=== PATIENT | female | born 1975 ===

== ENCOUNTER 2022-06-20 20:29 | Emergency (ER) | payer OTHER ==
--- OUTSIDE RECORDS SUMMARY | 2022-06-20 20:33 | XMS REPORT | Continuity of Care Document ---
:1975 Author Organization [facility] t Address [address] [place] [address] Care Team Providers Name Role Phone Pcp, Patient Does Not Have A Primary Care Physician [id number] LISANDRA CISNEROS Attending Clinician Unavailable Layla Cat MD Attending Clinician LAYLA CAT Attending Clinician Unavailable Doctor Unassigned, [place] Attending Clinician Unavailable Renato Xavier MD, [place] Attending Clinician [phone] VEENA SANDOVAL Attending Clinician Unavailable Lisandra Cisneros MD Attending Clinician Yrn Bower DO Attending Clinician Amadou EATON, Safia Collins Attending Clinician Unavailable Only, Clc Bls Test Attending Clinician Unavailable Abel Hannon MD Attending Clinician Arabella Yuan Attending Clinician ARABELLA SPENCE Attending Clinician Unavailable Draw, Clc-Bls Lab Attending Clinician Unavailable LISANDRA CISNEROS Admitting Clinician Unavailable Lisandra Cisneros MD Admitting Clinician Payers Payer Name Policy Type Policy Number Effective Date Expiration Date S [facility] MEDICARE PART A [id number] 2002 \T\ B 00:00:00 MEDICAID OF [place] [id number] 2011 00:00:00 Problems Condition Condition Condition Status Onset Resolution Last Treating Co mments Source Name Details Category Date Date Treatment Clinician Date Obesity Obesity Disease Active 2019-07 Univers (BMI (BMI 1-20 ity of 30-39.9) 30-39.9) 00:00: Medical Branch Aftercare Aftercare Disease Active 2019-07 Uni vers following following 1-20 ity of surgery of surgery of [place] the the Medical nervous nervous Branch system, system, NEC NEC 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 ICD10 Diagnosis Term [employer] Dystonia Dystonia Disease Active Unive rs of of 5 [place] of extremity extremity [place] Other Other Disease Active Univers extrapyram extrapyram 5 it y of idal idal 00:00: [place] disease disease 00 Medical and and Branch abnormal abnormal movement movement disorder disorder Other Other Disease Active Univers fragments fragments 5- ity of of torsion of torsion 00:00: [place] dy[place] dystonia 00 Medica l Branch Hemicrania Hemicrania Disease Active U nivers 4-30 ity of 00:00: Medical Branch Epilepsy Epilepsy Disease Active Overview: Un jayro 4-30 Formattin ity of 00:00: g of this note Medical might be Branch different from the original. 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 Seizures Seizures Disease Recurre Univ ers nce ity of [facility] Allergies, Adverse Reactions, Alerts Allergy Allergy Status Severity Reaction(s) Onset Inactive Treating Comm ents Source Name Type Date Date Clinician Stanley Propensi Active Rash Univer s ins ty to 9-16 ity of adverse 00:00: [place] reaction 00 Medical s to Branch drug PENICILL Drug Active Rash Univers INS Class 9-16 ity of 00:00: [place] 00 Medical Branch Penicill Propensi Active Rash Univer s ins ty to 9-16 ity of adverse 00:00: [place] reaction 00 Medical s to Branch drug ADHESIVE DRUG Active Med Rash 2007-07 Univers TAPE 0-20 ity of 00:00: [place] 00 Medical Branch Adhesive Propensi Active Rash 2007-07 Univer s Tape ty to 0-20 ity of adverse 00:00: [place] reaction 00 Medical s to Branch drug Social History Social Habit Start Date Stop Date Quantity Comments Source History of tobacco Cigarette Smoker University of use [facility] Exposure to 2022-04-29 2022-05-09 Not sure University SARS-CoV-2 (event) 00:00:00 11:01:00 [facility] Alcohol intake 2022-05-09 2022-05-09 .12 /d University of 00:00:00 00:00:00 [facility] Cigarettes smoked 2012-03-02 2012-03-02 Univers ity of current (pack per 00:00:00 00:00:00 [place] ) - Reported Branch Tobacco use and 2012-03-02 2012-03-02 Smokeless Universit y of exposure 00:00:00 00:00:00 tobacco non-user [facility] Sex Ass[birth year] Universit y of 00:00:00 00:00:00 [facility] Smoking Status Start Date Stop Date Source Smokes tobacco daily 2012-03-02 00:00:00 Univers ity of [facility] Medications Ordered Filled Start Stop Current Ordering Indication Dosage Frequency Signature Comments Components Source Medication Medication Date Date Medication? Clinician (SIG) Name Name levETIRAcet 2021-07 Yes [id number] TAKE 2 Univers am 500 mg 1-28 TABLETS BY ity of tablet 00:00: MOUTH IN [place] 00 THE Medical MORNING Branch AND 3 TABLETS BY MOUTH IN THE EVENING clostridium 2021-07- No [id number] 300U U nivers botulinum 0-20 10-20 ity of toxin 17:45: 16:56 [place] (BOTOX) 00 :00 Medical injection Branch 300 Units clostridium 2021-07- No [id number] 300U 300 Units, Univers botulinum 0-20 10-20 Intramuscu ity of toxin 17:45: 16:56 lar, ONCE, [place] (BOTOX) 00 :00 1 dose, On Medica l injection Dawn Branch 300 Units 05/09/22 at 1245, Routine
cleaning team member approving Restricted medication : LAYLA CAT clostridium 2021-07- No [id number] 300U U nivers botulinum 0-20 10-20 ity of toxin 17:45: 16:56 [place] (BOTOX) 00 :00 Medical injection Branch 300 Units clostridium 2021-07- No [id number] 300U 300 Units, Univers botulinum 0-20 10-20 Intramuscu ity of toxin 17:45: 16:56 lar, ONCE, [place] (BOTOX) 00 :00 1 dose, On Medica l injection Dawn Branch 300 Units 05/09/22 at 1245, Routine
cleaning team member approving Restricted medication : LAYLA CAT CLONAZEPAM 2021-07 Yes [id number] Take 1 U nivers 0.5 mg 0-10 tablet by ity of tablet 00:00: [facility] three Medical times Branch daily as needed for muscle spasm CLONAZEPAM 2021-07 Yes [id number] Take 1 U nivers 0.5 mg 0-10 tablet by ity of tablet 00:00: [facility] three Medical times Branch daily as needed for muscle spasm CLONAZEPAM 2021-07 Yes [id number] Take 1 U nivers 0.5 mg 0-10 tablet by ity of tablet 00:00: [facility] three Medical times Branch daily as needed for muscle spasm CLONAZEPAM 2021-07 Yes [id number] Take 1 U nivers 0.5 mg 0-10 tablet by ity of tablet 00:00: [facility] three Medical times Branch daily as needed for muscle spasm CLONAZEPAM 2021-07 Yes [id number] Take 1 U nivers 0.5 mg 0-10 tablet by ity of tablet 00:00: mouth [place] 00 three Medical times Branch daily as needed for muscle spasm CLONAZEPAM 2021-0 Yes [id number] Take 1 U nivers 0.5 mg 9-13 tablet by ity of tablet 00:00: mouth 00 three Medical times Branch daily as needed for muscle spasm CLONAZEPAM 2021-0 2- No [id number] Take 1 Univers 0.5 mg 9-13 10-10 tablet by ity of tablet 00:00: 00:00 mouth [place] 00 :00 three Medical times Branch daily as needed for muscle spasm OXcarbazepi 2021-0 Yes [id number] Take 1 Univers ne 300 mg 9-12 tablet by ity o f tablet 00:00: mouth 00 twice Medical daily Branch OXcarbazepi 2021-0 Yes [id number] Take 1 Univers ne 300 mg 9-12 tablet by ity o f tablet 00:00: mouth [place] 00 twice Medical daily Branch OXcarbazepi 2021-0 Yes [id number] Take 1 Univers ne 300 mg 9-12 tablet by ity o f tablet 00:00: mouth 00 twice Medical daily Branch OXcarbazepi 2021-0 Yes [id number] Take 1 Univers ne 300 mg 9-12 tablet by ity o f tablet 00:00: mouth 00 twice Medical daily Branch OXcarbazepi 2021-0 Yes [id number] Take 1 Univers ne 300 mg 9-12 tablet by ity o f tablet 00:00: mouth [place] 00 twice Medical daily Branch OXcarbazepi 2021-0 Yes [id number] Take 1 Univers ne 300 mg 9-12 tablet by ity o f tablet 00:00: mouth [place] 00 twice Medical daily Branch levETIRAcet 2021-0 Yes [id number] TAKE 2 Univers am 500 mg 8-04 TABLETS BY ity of tablet 00:00: MOUTH IN [place] 00 THE Medical MORNING Branch AND 3 TABLETS IN THE EVENING levETIRAcet 2021-0 Yes [id number] TAKE 2 Univers am 500 mg 8-04 TABLETS BY ity of tablet 00:00: MOUTH IN [place] THE Medical MORNING Branch AND 3 TABLETS IN THE EVENING levETIRAcet 2021-0 Yes [id number] TAKE 2 Univers am 500 mg 8-04 TABLETS BY ity of tablet 00:00: MOUTH IN [place] THE Medical MORNING Branch AND 3 TABLETS IN THE EVENING levETIRAcet 2021-0 Yes [id number] TAKE 2 Univers am 500 mg 8-04 TABLETS BY ity of tablet 00:00: MOUTH IN [place] 00 THE Medical MORNING Branch AND 3 TABLETS IN THE EVENING levETIRAcet 2021-0 Yes [id number] TAKE 2 Univers am 500 mg 8-04 TABLETS BY ity of tablet 00:00: MOUTH IN [place] 00 THE Medical MORNING Branch AND 3 TABLETS IN THE EVENING levETIRAcet 2021-0 Yes [id number] TAKE 2 Univers am 500 mg 8-04 TABLETS BY ity of tablet 00:00: MOUTH IN [place] 00 THE Medical MORNING Branch AND 3 TABLETS IN THE EVENING levETIRAcet 2021-0 2022- No [id number] TAKE 2 Univers am 500 mg 8-04 11-28 TABLETS BY ity of tablet 00:00: 00:00 MOUTH IN [place] 00 :00 THE Medical MORNING Branch AND 3 TABLETS IN THE EVENING clostridium 2021-0 2021- No [id number] 300U U nivers botulinum 01-31 ity of toxin 18:45: 17:42 [place] (BOTOX) 00 :00 Medical injection Branch 300 Units clostridium 2021-0 2021- No [id number] 300U 300 Units, Univers botulinum 01-31 Intramuscu ity of toxin 18:45: 17:42 lar, ONCE, [place] (BOTOX) 00 :00 1 dose, On Medica l injection Dawn Branch 300 Units 01/31/22 at 1345, Routine
cleaning team member approving Restricted medication : LAYLA CAT No known No No known Unive rs medications 01-31 medication it y of 12:47: s [place] 39 Medical Branch CLONAZEPAM 2021-0 Yes [id number] Take 1 U nivers 0.5 mg 7-12 tablet by ity of tablet 00:00: mouth [place] [address] three Medical times Branch daily as needed for muscle spasm CLONAZEPAM 2021-0 Yes [id number] Take 1 U nivers 0.5 mg 7-12 tablet by ity of tablet 00:00: mouth [place] [address] three Medical times Branch daily as needed for muscle spasm CLONAZEPAM 2021-0 Yes [id number] Take 1 U nivers 0.5 mg 7-12 tablet by ity of tablet 00:00: mouth [place] [address] three Medical times Branch daily as needed for muscle spasm CLONAZEPAM 2021-0 2022- No [id number] Take 1 Univers 0.5 mg 7-12 -13 tablet by ity of tablet 00:00: 00:00 mouth [place] 00 :00 three Medical times Branch daily as needed for muscle spasm OXCARBAZEPI 2021-0 Yes [id number] Take 1 Univers NE 300 mg 6-07 tablet by ity o f tablet 00:00: mouth [place] 00 twice Medical daily Branch OXCARBAZEPI 2-0 Yes [id number] Take 1 Univers NE 300 mg 6-07 tablet by ity o f tablet 00:00: mouth [place] 00 twice Medical daily Branch OXCARBAZEPI 2-0 Yes [id number] Take 1 Univers NE 300 mg 6-07 tablet by ity o f tablet 00:00: mouth [place] 00 twice Medical daily Branch OXCARBAZEPI 2-0 2- No [id number] Take 1 Univers NE 300 mg 6-07 -12 tablet by ity of tablet 00:00: 00:00 mouth [place] 00 :00 twice Medical daily Branch CYCLOBENZAP 2-0 Yes [id number] TAKE 1 Univers RINE 10 mg 6-02 TABLET BY ity of tablet 00:00: MOUTH [place] 00 THREE Medical TIMES Branch DAILY CYCLOBENZAP 2-0 Yes [id number] TAKE 1 Univers RINE 10 mg 6-02 TABLET BY ity of tablet 00:00: MOUTH [place] 00 THREE Medical TIMES Branch DAILY CYCLOBENZAP 2-0 Yes [id number] TAKE 1 Univers RINE 10 mg 6-02 TABLET BY ity of tablet 00:00: MOUTH [place] 00 THREE Medical TIMES Branch DAILY CYCLOBENZAP 2-0 Yes [id number] TAKE 1 Univers RINE 10 mg 6-02 TABLET BY ity of tablet 00:00: MOUTH [place] 00 THREE Medical TIMES Branch DAILY CYCLOBENZAP 2-0 Yes [id number] TAKE 1 Univers RINE 10 mg 6-02 TABLET BY ity of tablet 00:00: MOUTH [place] 00 THREE Medical TIMES Branch DAILY CYCLOBENZAP 2-0 Yes [id number] TAKE 1 Univers RINE 10 mg 6-02 TABLET BY ity of tablet 00:00: MOUTH [place] 00 THREE Medical TIMES Branch DAILY CYCLOBENZAP 2-0 Yes [id number] TAKE 1 Univers RINE 10 mg 6-02 TABLET BY ity of tablet 00:00: MOUTH [place] 00 THREE Medical TIMES Branch DAILY CYCLOBENZAP 2022-0 Yes [id number] TAKE 1 Univers RINE 10 mg 6-02 TABLET BY ity of tablet 00:00: MOUTH THREE Medical TIMES [place] DAILY CYCLOBENZAP 0 Yes [id number] TAKE 1 Univers RINE 10 mg 6-02 TABLET BY ity of tablet 00:00: MOUTH THREE [facility] TIMES [place] DAILY levETIRAcet 2020-07 Yes [id number] TAKE 2 Univers am 500 mg 2-30 TABLETS BY ity of tablet 00:00: MOUTH DAILY IN [facility] THE [place] MORNING , THEN TAKE 3 TABLETS IN THE EVENING diclofenac 2020-07 Yes [id number] 75mg Take 1 U nivers 75 mg EC 2-30 tablet by ity of tablet 00:00: mouth (two) Medical times [place] daily with meals. Use as needed for pain levETIRAcet 2020-07 Yes [id number] TAKE 2 Univers am 500 mg 2-30 TABLETS BY ity of tablet 00:00: MOUTH DAILY IN [facility] THE [place] MORNING , THEN TAKE 3 TABLETS IN THE EVENING diclofenac 2020-07 Yes [id number] 75mg Take 1 U nivers 75 mg EC 2-30 tablet by ity of tablet 00:00: mouth (two) Medical times [place] daily with meals. Use as needed for pain diclofenac 2020-07 Yes [id number] 75mg Take 1 U nivers 75 mg EC 2-30 tablet by ity of tablet 00:00: mouth (two) Medical times [place] daily with meals. Use as needed for pain diclofenac 2020-07 Yes [id number] 75mg Take 1 U nivers 75 mg EC 2-30 tablet by ity of tablet 00:00: mouth (two) Medical times [place] daily with meals. Use as needed for pain diclofenac 2020-07 Yes [id number] 75mg Take 1 U nivers 75 mg EC 2-30 tablet by ity of tablet 00:00: mouth (two) Medical times [place] daily with meals. Use as needed for pain diclofenac 2020-07 Yes [id number] 75mg Take 1 U nivers 75 mg EC 2-30 tablet by ity of tablet 00:00: mouth (two) Medical times [place] daily with meals. Use as needed for pain diclofenac 2020-07 Yes [id number] 75mg Take 1 U nivers 75 mg EC 2-30 tablet by ity of tablet 00:00: mouth 2 (two) Medical times Branch daily with meals. Use as needed for pain diclofenac 2020-07 Yes [id number] 75mg Take 1 U nivers 75 mg EC 2-30 tablet by ity of tablet 00:00: mouth 2 (two) Medical times [place] daily with meals. Use as needed for pain diclofenac 2020-07 Yes [id number] 75mg Take 1 U nivers 75 mg EC 2-30 tablet by ity of tablet 00:00: mouth 2 (two) Medical times Branch daily with meals. Use as needed for pain levETIRAcet 2020-07- No [id number] TAKE 2 Univers am 500 mg 2-30 - TABLETS BY ity of tablet 00:00: 00:00 [place] DAILY IN Medical THE [place] MORNING , THEN TAKE 3 TABLETS IN THE EVENING Immunizations Ordered Filled Immunization Date Status Comments [facility] e Immunization Name Name SARS-COV-2 COVID-19 2020-09-01 Completed Unive rsity of PFIZER VACCINE 00:00:00 [facility] [place] [facility] SARS-COV-2 COVID-19 2020-09-01 Completed Unive rsity of PFIZER VACCINE 00:00:00 [facility] [place] [facility] SARS-COV-2 COVID-19 2020-09-01 Completed Unive rsity of PFIZER VACCINE 00:00:00 [facility] [place] [facility] SARS-COV-2 COVID-19 2020-09-01 Completed Unive rsity of PFIZER VACCINE 00:00:00 [facility] [place] [facility] SARS-COV-2 COVID-19 2020-09-01 Completed Unive rsity of PFIZER VACCINE 00:00:00 [facility] [place] [facility] SARS-COV-2 COVID-19 2020-09-01 Completed Unive rsity of PFIZER VACCINE 00:00:00 [facility] [place] [facility] SARS-COV-2 COVID-19 2020-09-01 Completed Unive rsity of PFIZER VACCINE 00:00:00 [facility] [place] [facility] SARS-COV-2 COVID-19 2020-09-01 Completed Unive rsity of PFIZER VACCINE 00:00:00 [facility] [place] [facility] SARS-COV-2 COVID-19 2020-09-01 Completed Unive rsity of PFIZER VACCINE 00:00:00 [facility] [place] [facility] SARS-COV-2 COVID-19 2020-08-11 Completed Unive rsity of PFIZER VACCINE 00:00:00 [facility] [place] [facility] SARS-COV-2 COVID-19 2020-08-11 Completed Unive rsity of PFIZER VACCINE 00:00:00 [facility] [place] [facility] SARS-COV-2 COVID-19 2020-08-11 Completed Unive rsity of PFIZER VACCINE 00:00:00 [facility] [place] [facility] SARS-COV-2 COVID-19 2020-08-11 Completed Unive rsity of PFIZER VACCINE 00:00:00 [facility] [place] [facility] SARS-COV-2 COVID-19 2020-08-11 Completed Unive rsity of PFIZER VACCINE 00:00:00 [facility] [place] [facility] SARS-COV-2 COVID-19 2020-08-11 Completed Unive rsity of PFIZER VACCINE 00:00:00 [facility] [place] [facility] SARS-COV-2 COVID-19 2020-08-11 Completed Unive rsity of PFIZER VACCINE 00:00:00 [facility] [place] [facility] SARS-COV-2 COVID-19 2020-08-11 Completed Unive rsity of PFIZER VACCINE 00:00:00 [facility] [place] [facility] SARS-COV-2 COVID-19 2020-08-11 Completed Unive rsity of PFIZER VACCINE 00:00:00 [facility] [place] [facility] Vital Signs Vital Name Observation Time Observation Value Comments Source Systolic blood 2022-05-09 16:13:00 142 mm[Hg] Univer sity of pressure [facility] Diastolic blood 2022-05-09 16:13:00 88 mm[Hg] Unive rsity of pressure [facility] Heart rate 2022-05-09 16:13:00 96 /min [facility] Body temperature 2022-05-09 16:13:00 36.22 [facility] Body height 2022-05-09 16:13:00 152.4 cm [facility] Body weight 2022-05-09 16:13:00 73.71 kg [facility] BMI 2022-05-09 16:13:00 31.74 kg/m2 [facility] Oxygen saturation in 2022-05-09 16:13:00 99 /min [facility] Arterial blood by [facility] Pulse oximetry Branch Systolic blood 2022-01-31 16:20:00 131 mm[Hg] Univer sity of pressure [facility] Diastolic blood 2022-01-31 16:20:00 87 mm[Hg] Unive rsity of pressure [facility] Heart rate 2022-01-31 16:15:00 113 /min Univers ty [facility] Body temperature 2022-01-31 16:15:00 36.56 Oksana Univ ersity of [facility] Body height 2022-01-31 16:15:00 152.4 cm Universi ty [facility] Body weight 2022-01-31 16:15:00 [facility] 2022-01-31 16:15:00 32.34 kg/m2 [facility] Oxygen saturation in 2022-01-31 16:15:00 97 /min [facility] Arterial blood by [facility] Pulse oximetry [place] Procedures Procedure Date / Time Performed Performing Clinician Sourc e DISCLOSURE AND 2022-05-09 05:01:00 Doctor Unassigned, No Univer sity of [place] CONSENT, MEDICAL AND Name Medical [facility] SURGICAL PROCEDURES DISCLOSURE AND 2022-01-31 05:01:00 Doctor Unassigned, No Univer sity of [place] CONSENT, MEDICAL AND Name Medical [facility] SURGICAL PROCEDURES Encounters Start End Encounter Admission Attending Care Care Encounter Source Date/Time Date/Time Type Type Clinicians Facility Department ID 2021-05-19 Inpatient [facility] [id number] Univers 05:23:24 DECEMBER ity [facility] 2022-06-15 2022-06-15 [facility] [id number] Univers 00:00:00 00:00:00 [facility] [id number] it y of [id number] [phone] [address] OFFICE BUILDING 2022-05-09 2022-05-09 Office [facility] 1.2.840.114 [id number] Univers 11:00:00 11:30:00 Visit [facility] [id number] it y [id number] [phone] [address] OFFICE BUILDING 2022-05-09 2022-05-09 Outpatient R EMORY [facility] [id number] Univers 11:00:00 11:00:00 LAYLA ity [facility] 2022-05-09 2022-05-09 Orders Doctor SUDHA 1.2.840.114 [id number] Univers 00:00:00 00:00:00 Only Unassigned, DINORA [id number] ity of [place] [facility] [id number] Danny as [phone] [address] 2022-04-26 2022-04-[facility] [id number] Univers 00:00:00 00:00:00 Layla HEALTH [id number] it y [id number] [id number] [address] OFFICE BUILDING 2022-03-31 2022-03-31 [facility] 1.2.840.114 [id number] Univers 00:00:00 00:00:00 Layla HEALTH [id number] it [id number] [id number] [address] OFFICE BUILDING 2022-02-21 2022-02-21 [facility] 1.2.840.114 [id number] Univers 00:00:00 00:00:00 Layla HEALTH [id number] it y [id number] [id number] [address] OFFICE BUILDING 2022-01-31 2022-01-31 [facility] 1.2.840.114 [id number] Univers 11:00:00 11:57:35 Visit Layla HEALTH [id number] it y [id number] [id number] [address] OFFICE BUILDING 2022-01-31 2022-01-31 Outpatient R [facility] [id number] Univers 11:00:00 11:57:35 LAYLA ity [facility] Medical Branch 2022-01-31 2022-01-31 Outpatient R [facility] [id number] Univers 11:00:00 11:00:00 LAYLA debby [facility] 2022-01-31 2022-01-31 Orders Doctor SUDHA 1.2.840.114 [id number] Univers 00:00:00 00:00:00 Only Unassigned, DINORA 350.1.13.10 ity of [place] [facility] [id number] Danny as [id number] [address] 2022-01-22 2022-01-22 [facility] 1.2.840.114 [id number] Univers 00:00:00 00:00:00 Layla HEALTH [id number] it [id number] [id number] [address] OFFICE BUILDING 2021-12-24 2021-12-24 [facility] 1.2.840.114 [id number] Univers 00:00:00 00:00:00 Layla HEALTH [id number] it y [id number] [id number] [address] OFFICE BUILDING 2021-12-19 2021-12-19 [facility] 1.2.840.114 [id number] Univers 00:00:00 00:00:00 Layla HEALTH [id number] it y [id number] [id number] [address] OFFICE BUILDING 2021-12-04 2021-12-04 [facility] 1.2.840.114 [id number] Univers 00:00:00 00:00:00 Layla HEALTH [id number] it y [id number] [id number] [address] OFFICE BUILDING 2021-11-08 2021-11-08 [facility] 1.2.840.114 [id number] Univers 00:00:00 00:00:00 Layla HEALTH [id number] it y [id number] [id number] [address] OFFICE BUILDING 2021-11-01 2021-11-01 Outpatient R [facility] [id number] Univers 10:30:00 11:29:[facility] 2021-11-01 2021-11-01 [facility] 1.2.840.114 [id number] Univers 10:30:00 11:29:28 Visit Layla HEALTH [id number] it y [id number] [phone] [address] OFFICE BUILDING 2021-11-01 2021-11-01 [facility] [id number] Univers 10:30:00 11:29:28 [facility] 2021-08-14 2021-08-14 [facility] 1.2.840.114 [id number] Univers 00:00:00 00:00:00 Layla HEALTH 350.1.13.10 [place] [phone] [address] OFFICE BUILDING 2021-07-23 2021-07-23 [facility] 1.2.840.114 [id number] 875 Univers 00:00:00 00:00:00 Layla HEALTH 350.1.13.10 it [place] [phone] [address] OFFICE BUILDING 2021-07-19 2021-07-19 Office [facility] 1.2.840.114 [id number] 056 Univers 11:00:00 12:08:40 Visit Layla HEALTH 350.1.13.10 it [place] [phone] [address] OFFICE BUILDING 2021-07-19 2021-07-19 Outpatient [facility] [id number] Univers 11:00:00 12:08:40 LAYLA debby [facility] 2021-07-19 2021-07-19 Outpatient R EMORY [facility] [id number] Univers 11:00:00 11:00:00 LAYLA itdebby [facility] 2021-07-19 2021-07-19 Orders Doctor SUDHA 1.2.840.114 [id number] Univers 00:00:00 00:00:00 Only Unassigned, DINORA 350.1.13.10 ity of [place] [facility] 4.2.7.2.686 Danny as [phone] [address] 2021-06-27 2021-06-27 [facility] 1.2.840.114 [id number] Univers 00:00:00 00:00:00 Layla HEALTH 350.1.13.10 it [place] [phone] [address] OFFICE BUILDING 2021-04-26 2021-04-26 [facility] 1.2.840.114 [id number] 776 Univers 00:00:00 00:00:00 Layla Health 350.1.13.10 it [place] [phone] [address] Office Building 2021-04-26 2021-04-26 [facility] 1.2.840.114 [id number] 786 Univers 00:00:00 00:00:00 Layla Health 350.1.13.10 it [place] [phone] [address] Office Building 2021-04-17 2021-04-17 Office [facility] 1.2.840.114 60496 [id number] Univers 10:38:51 15:38:15 Visit Layla Health 350.1.13.10 it [place] [phone] [address] Office Building 2021-04-17 2021-04-17 Outpatient Franchesca CAT [facility] [id number] Univers 10:30:00 10:30:00 LAYLA ity of [facility] 2021-04-17 2021-04-17 Orders Doctor SUDHA 1.2.840.114 [id number] Univers 00:00:00 00:00:00 Only Unassigned, DINORA 350.1.13.10 ity of [place] [facility] 4.2.7.2.686 Danny as [phone] [address] 2021-02-20 2021-02-20 Telephone ALAYNA Cat 1.2.840.114 [id number] [id number] Univers 00:00:00 00:00:00 Layla Health 350.1.13.10 it [place] [phone] [address] Office Building 2021-02-19 2021-02-19 Reftru Cat IDMARINA 1.2.840.114 [id number] Univers 00:00:00 00:00:00 Layla Health 350.1.13.10 it y [place] [phone] [place] [address] [address] Office Building 2021-02-17 2021-02-17 Elizabeth Cat IDMARINA 1.2.840.114 [id number] Univers 00:00:00 00:00:00 Layla Health 350.1.13.10 it y [place] [phone] [place] [address] [address] Office Building 2021-02-09 2021-02-09 Elizabeth Cat IDMARINA 1.2.840.114 [id number] Univers 00:00:00 00:00:00 Layla Health 350.1.13.10 it y [place] [phone] [place] [address] [address] Office Building 2021-01-22 2021-01-22 Yris Gross [facility] 1.2.485.140 [id number] [id number] Univers 00:00:00 00:00:00 Xavier, Health 350.1.13.10 it y of [place] 4.2.7.2.686 Danny as Alexander [phone] [place] [address] [address] Office Building 2021-01-09 2021-01-09 Telephone [facility] 1.2.840.114 [id number] Univers 00:00:00 00:00:00 Layla Health 350.1.13.10 it [place] [phone] [address] Office Building 2021-01-04 2021-01-04 Office Renato Michelle Xavierio [facility] 1.2 .840.114 [id number] Univers 10:45:08 11:15:08 Visit Emory Layla Health 350.1.13.10 ity of [place] [phone] [address] Office Building 2021-01-04 2021-01-04 Outpatient R EMORY [facility] [id number] Univers 11:00:00 11:00:00 LAYLA ity of [facility] 2021-01-02 2021-01-02 Refill [facility] 1.2.840.114 [id number] [id number] Univers 00:00:00 00:00:00 Layla Health 350.1.13.10 it y [place] [phone] [address] Office Building 2020-12-25 2020-12-25 Telephone [facility] 1.2.840.114 [id number] Univers 00:00:00 00:00:00 Layla Health 350.1.13.10 it y [place] [phone] [place] [address] [address] Office Building 2020-12-21 2020-12-21 Patient Emory [facility] 1.2.840.114 [id number] [id number] Univers 00:00:00 00:00:00 Secure Msg Layla Health 350.1.13.10 ity of [place] [phone] [place] [address] [address] Office Building 2020-10-20 2020-10-20 Refill [facility] 1.2.840.114 [id number] 091 Univers 00:00:00 00:00:00 Layla Health 350.1.13.10 it y [place] [phone] [address] Office Building 2020-10-05 2020-10-05 Office Renato Remberto Xavier [facility] 1.2 .840.114 [id number] Univers 11:40:55 12:10:55 Visit Emi Catna Health 350.1.13.10 ity of [place] [phone] [address] Office Building 2020-10-05 2020-10-05 Outpatient R EMORY [facility] [id number] Univers 11:30:00 11:30:00 LAYLA ity of [facility] 2020-10-05 2020-10-05 Orders Doctor SUDHA 1.2.840.114 [id number] Univers 00:00:00 00:00:00 Only Unassigned, DINORA 350.1.13.10 ity of [place] [facility] 4.2.7.2.686 Danny as [phone] [address] 2020-09-21 2020-09-21 [facility] 1.2.840.114 [id number] 670 Univers 00:00:00 00:00:00 Layla Health 350.1.13.10 it y [place] [phone] [address] Office Building 2020-09-20 2020-09-20 [facility] 1.2.840.114 [id number] 743 Univers 00:00:00 00:00:00 Layla Health 350.1.13.10 it y [place] [phone] [address] Office Building 2020-09-12 2020-09-12 Telephone SUDHA Cat 1.2.840.114 [id number] Univers 00:00:00 00:00:00 Layla DINORA 350.1.13.10 it y of HOSPITAL 4.2.7.2.686 Danny as [phone] [facility] [address] 2020-09-12 2020-09-12 [facility] 1.2.840.114 [id number] 739 Univers 00:00:00 00:00:00 Layla Health 350.1.13.10 it y [place] [phone] [address] Office Building 2020-09-11 2020-09-11 [facility] 1.2.840.114 [id number] Univers 00:00:00 00:00:00 Layla Health 350.1.13.10 it y [place] [phone] [address] Office [facility] 2020-09-01 2020-09-01 Outpatient Franchesca SANDOVAL [facility] [id number] [id number] Univers 15:50:00 15:50:00 VEENA ity of [facility] 2020-08-28 2020-08-28 Patient EmorySUDHA 1.2.840.114 [id number] Univers 00:00:00 00:00:00 Secure Msg Layla DINORA 350.1.13.10 ity of [facility] 4.2.7.2.686 Danny as [phone] [address] 2020-08-25 2020-08-25 [facility] 1.2.840.114 [id number] Univers 00:00:00 00:00:00 Lisandra [place] [facility] 350.1.13.10 ity [place] [phone] [address] Office Building 2020-08-24 2020-08-24 [facility] 1.2.745.264 [id number] 5444 Univers 11:00:00 23:59:00 Encounter Lisandra Marlon [place] 350.1.13.10 ity of [place].2.[place] [phone] [facility] [address] 2020-08-24 2020-08-24 Outpatient R [facility] [id number] Univers 00:00:00 00:00:00 LISANDRA ity of [facility] 2020-08-11 2020-08-11 Outpatient R AMELIA [facility] [id number] 5230 Univers 00:00:00 00:00:00 LISANDRA ity of [facility] 2020-08-11 2020-08-11 Reftru Cat [facility] 1.2.840.114 [id number] [id number] Univers 00:00:00 00:00:00 Layla Health 350.1.13.10 it y [place] [phone] [address] Office Building 2020-08-11 2020-08-11 Reftru Cat [facility] 1.2.840.114 [id number] 418 Univers 00:00:00 00:00:00 Layla Health 350.1.13.10 it y of [place] [phone] [address] Office Building 2020-08-11 2020-08-11 Telephone Amelia [facility] 1.2.840.114 [id number] Univers 00:00:00 00:00:00 December [place] [facility] 350.1.13.10 ity [place] [phone] [address] Office Building 2020-08-08 2020-08-08 Patient Sathish [facility] 1.2.840.114 [id number] Univers 00:00:00 00:00:00 Outreach Yrn PRIMARY 350.1.13.10 i ty of [place]2.[place].2.[place] [phone] [address] 2020-08-07 2020-08-07 Reftru Cat [facility] 1.2.840.114 77784 [id number] Univers 00:00:00 00:00:00 Layla Health 350.1.13.10 it y of [place] [phone] [address] Office Building 2020-08-01 2020-08-01 Office Amelia [facility] 1.2.840.114 [id number] 471 Univers 13:20:56 13:35:56 Visit Lisandra [employer] 350.1.13.10 ity of [place] [phone] [address] Office Building 2020-08-01 2020-08-01 Outpatient R [facility] [id number] Univers 13:30:00 13:30:00 LISANDRA ity [facility] 2020-07-12 2020-07-12 Refill [facility] 1.2.840.114 [id number] Univers 00:00:00 00:00:00 Layla HEALTH 350.1.13.10 it y of [place] [phone] [address] OFFICE BUILDING 2020-07-06 2020-07-06 Office Remberto Byrd [facility] 1.2 .840.114 [id number] Univers 11:20:57 11:50:57 Visit Layla Cat [facility] 350.1.13.10 ity of [place]2.[place] [phone] [address] Office Building 2020-07-06 2020-07-06 Outpatient R [facility] [id number] Univers 11:30:00 11:30:00 LAYLA ity [facility] 2020-06-27 2020-06-27 Outpatient R [facility] [id number] Univers 13:15:00 13:15:00 LISANDRA ity [facility] 2020-06-27 2020-06-27 Office [facility] 1.2.840.114 [id number] Univers 12:59:14 13:14:14 Visit Lisandra [employer] 350.1.13.10 ity of [place] [phone] [address] Office Building 2020-06-12 2020-06-12 Transition Karsten Tobar 1.2.840.114 [id number] Univers 00:00:00 00:00:00 of Care Safia Montes 350.1.13.10 i ty of [place]2.7.2.[place] [phone] [facility] [address] 2020-06-08 2020-06-09 Hospital Melvina Cisneros 1.2.074.484 [id number] [id number] Univers 05:12:00 12:20:00 Encounter Lisandra Melo 350.1.13.10 ity of Hospital 4.2.7.2.686 Danny as [phone] [facility] [address] 2020-06-08 2020-06-08 Orders Doctor SUDHA 1.2.840.114 [id number] Univers 00:00:00 00:00:00 Only Unassigned, DINORA 350.1.13.10 ity of [place] [facility] 4.2.7.2.686 Danny as [phone] [address] 2020-06-07 2020-06-07 Laboratory Only, Clc Bls Test [facility] 1.2. 840.114 [id number] Univers 13:28:48 13:43:48 Only Abel [facility] 350.1.13.10 ity [place] [phone] [facility] [address] Office Building 2020-06-07 2020-06-07 [facility] [id number] Univers 13:30:00 13:30:00 LISANDRA ity [facility] 2020-06-07 2020-06-07 Office [facility] 1.2.840.114 [id number] Univers 13:02:25 13:27:58 Visit Lisandra [facility] 350.1.13.10 ity [place] [phone] [facility] [address] Office Building 2020-06-07 2020-06-07 Orders Doctor SUDHA 1.2.840.114 [id number] Univers 00:00:00 00:00:00 Only Unassigned, DINORA 350.1.13.10 ity of [place] [facility] 4.2.7.2.686 Danny as [phone] [facility] [address] 2020-06-01 2020-06-01 Hospital NELL Spence 1.2.840.114 [id number] Univers 12:18:53 23:59:00 Encounter Arabella Perez HEALTH 350.1.13.10 ity of CL[place] [id number] [address] 2020-05-31 2020-05-31 [facility]840[facility]114 7 [id number] Univers 13:22:12 23:59:00 Encounter Arabella Baljit Y HEALTH 350.1.13.10 ity of CL[place].2.[place] [id number] [address] 2020-05-31 2020-05-31 [facility] 1.2.840.114 7 [id number] Univers 11:00:00 13:21:00 Encounter Arabella Baljit Perez HEALTH 350.1.13.10 ity of CL[place]2.[place].2.[place] [id number] [address] 2020-05-31 2020-05-31 [facility] 1.2.840.114 [id number] Univers 09:30:00 10:59:00 Encounter Arabella Baljit Perez HEALTH 350.1.13.10 ity of CLIN[place] 4[place]2.[place].2.[place] [phone] [address] 2020-05-31 2020-05-31 Outpatient [facility] [id number] Univers 00:00:00 00:00:00 ARABELLA ity of [facility] 2020-05-24 2020-05-24 Office [facility] 1.2.840.114 [id number] Univers 13:56:34 14:11:34 Visit Lisandra [facility] Health 350.1.13.10 ity of [place] [phone] [address] Office Building 2020-05-24 2020-05-24 Outpatient R [facility] [id number] Univers 14:00:00 14:00:00 LISANDRA ity of [facility] 2020-05-21 2020-05-21 [facility] 1.2.840.114 [id number] Univers 00:00:00 00:00:00 Layla Y HEALTH 350.1.13.10 i ty of CL[place] [phone] [address] 2020-05-16 2020-05-16 [facility] 1.2.357.507 [id number] [id number] Univers 15:39:13 23:59:00 Encounter Lisandra Crawford 350.1.13.10 ity of [place].2.686 [place] [phone] [address] 2020-05-16 2020-05-16 Outpatient R [facility] [id number] Univers 00:00:00 00:00:00 LISANDRA ity of [facility] 2020-05-08 2020-05-08 [facility]ill [facility] 1.2.840.114 [id number] [id number] Univers 00:00:00 00:00:00 Layla Health 350.1.13.10 it y of [place]2.[place] [id number] [address] Office Building 2020-04-25 2020-04-25 [facility] 1.2.840.114 [id number] [id number] Univers 13:20:01 23:59:00 Encounter Arabella C Health 350.1.13.10 ity of [place].2.[place] [phone] [address] ([facility]) 2020-04-25 2020-04-25 [facility] 1.2.840.114 [id number] [id number] Univers 13:19:19 13:19:19 Encounter Arabella C Health 350.1.13.10 ity of [place].2.[place] [phone] [address] ([facility]) 2020-04-25 2020-04-25 Office [facility] 1.2.840.114 [id number] Univers 13:03:19 13:18:19 Visit Lisandra [facility] 350.1.13.10 ity of [place].2.[place] [phone] [address] Office Building 2020-04-25 2020-04-25 [facility] 1.2.840.114 [id number] [id number] Univers 13:15:00 13:18:00 Encounter Arabella Woodward 350.1.13.10 ity of [place].2.[place] [phone] [facility] [address] ([facility]) 2020-04-25 2020-04-25 Outpatient R AMELIA [facility] [id number] 8079 Univers 13:15:00 13:15:00 LISANDRA ity of [facility] 2020-04-18 2020-04-18 [facility] 1.2.131.169 [id number] Univers 13:47:59 23:59:00 Encounter Layla Crawford 350.1.13.10 ity of [place].2.[place] [phone] [address] 2020-04-18 2020-04-18 Outpatient R [facility] [id number] 4193 Univers 00:00:00 00:00:00 [facility] 2020-04-13 2020-04-13 Cost Consultant Draw, [facility] 1.2.8 40.114 [id number] Univers 11:52:36 12:07:36 Visit Layla Cat 350.1.13.10 ity of [place].2.[place] [phone] [facility] [address] Office Building 2020-04-13 2020-04-13 Office Remberto Byrd [facility] 1.2 .840.114 [id number] Univers 10:35:52 11:50:37 Visit Layla Cat 350.1.13.10 ity of [place].2.[place] [phone] [facility] [address] Office Building 2020-04-13 2020-04-13 Outpatient R [facility] [id number] Univers 11:30:00 11:30:00 LAYLA [facility] 2020-04-13 2020-04-13 Orders Doctor HALEY 1.2.840.114 [id number] Univers 00:00:00 00:00:00 Only Unassigned, DINORA 350.1.13.10 ity of [place] [facility] 4.2.7.2.686 Danny as [phone] [address] 2020-04-07 2020-04-07 [facility] 1.2.840.114 [id number] Univers 00:00:00 00:00:00 Layla Health 350.1.13.10 it y of [place].2.[place] [id number] [address] Office Building 2020-01-31 2020-01-31 [facility] 1.2.840.114 [id number] [id number] Univers 00:00:00 00:00:00 Layla Health 350.1.13.10 it y of [place].2.[place] [id number] [address] Office Building 2020-01-16 2020-01-16 Refill Emory [facility] 1.2.840.114 [id number] Univers 00:00:00 00:00:00 Layla Y HEALTH 350.1.13.10 i ty of CLIN[place].2.[place] [id number] [address] 2020-01-06 2020-01-06 [facility] 1.2.840.114 [id number] Univers 13:34:32 14:04:32 Visit Layla Health 350.1.13.10 it y of [place] 4[place]2.7.2.[place] [phone] [address] Office Building 2020-01-06 2020-01-06 Outpatient R EMORY [facility] [id number] Univers 13:30:00 13:30:00 LAYLA ity of [facility] 2019-12-29 2019-12-29 Refill Doctor [facility] 1.2.840.114 [id number] Univers 00:00:00 00:00:00 Unassigned, Health 350.1.13.10 ity of [place]2.7.2.[place] [id number] [address] Office Building 2019-12-29 2019-12-29 Refill Emory [facility] 1.2.840.114 [id number] Univers 00:00:00 00:00:00 Layla Health 350.1.13.10 it y of [place]2.7.2.[place] [phone] [address] Office Building 2019-12-06 2019-12-06 Refill Emory [facility] 1.2.840.114 [id number] [id number] Univers 00:00:00 00:00:00 Layla Y HEALTH 350.1.13.10 i ty of CL[place].2.[place] [id number] [address] 2019-10-21 2019-10-21 Telephone [facility] 1.2.840.114 [id number] [id number] Univers 00:00:00 00:00:00 Layla Health 350.1.13.10 it y [place] [phone] [address] Office Building 2019-10-19 2019-10-19 Telephone [facility] 1.2.840.114 [id number] Univers 00:00:00 00:00:00 Layla Health 350.1.13.10 it y of [place].2.[place] [phone] [address] Office Building 2019-09-23 2019-09-23 Outpatient R [facility] [id number] 7957 Univers 14:00:00 14:00:00 LAYLA ity of [facility] 2019-09-23 2019-09-23 Office [facility] 1.2.840.114 [id number] Univers 12:22:38 13:39:57 Visit Layla Health 350.1.13.10 it y of [place].2.[place] [phone] [address] Office Building 2019-09-23 2019-09-23 Orders Doctor SUDHA 1.2.840.114 [id number] Univers 00:00:00 00:00:00 Only Unassigned, DINORA 350.1.13.10 ity of [place] [facility] 4.2.7.2.686 Danny as [phone] [address] 2019-09-22 2019-09-22 [facility] 1.2.840.114 [id number] Univers 00:00:00 00:00:00 Layla Health 350.1.13.10 it y of [place] [phone] [address] Office Building 2019-09-03 2019-09-03 [facility] 1.2.840.114 [id number] [id number] Univers 00:00:00 00:00:00 Layla Y HEALTH 350.1.13.10 i ty of CL[place] [phone] [address] 2019-08-26 2019-08-26 Patient [facility] 1.2.840.114 [id number] Univers 00:00:00 00:00:00 Secure Msg Layla Health 350.1.13.10 ity of [place].2.[place] [phone] [address] Office Building 2019-04-01 2019-04-01 [facility] 1.2.840.114 [id number] [id number] Univers 00:00:00 00:00:00 Layla Health 350.1.13.10 it y of [place].2.[place] [phone] [address] Office Building 2019-02-21 2019-02-21 [facility] 1.2.840.114 [id number] [id number] Univers 00:00:00 00:00:00 Layla Y HEALTH 350.1.13.10 i ty of CLINICS 4.2.7.2.[place] [id number] [place] [address] Branch Orders Doctor SUDHA 1.2.840.114 [id number] Univers 00:00:00 00:00:00 Only Unassigned, DINORA 350.1.13.10 ity of [place] [facility] 4.2.7.2.686 Danny as [phone] [place] [address] Branch Results This patient has no known results.
[2022-06-20] MEDS ORDERED: CEFAZOLIN SODIUM 1 GM/VIAL ONE (20:53)
[2022-06-20] MEDS ORDERED: LIDOCAINE 1% MPF 5 ML VIAL ONE (20:53)
[2022-06-20] MEDS ORDERED: ONDANSETRON 4 MG/2 ML VIAL ONE ×2 (20:54→21:42)
[2022-06-20] MEDS ORDERED: NA CHLORIDE 0.9% 1,000 ML ONE (20:54)
[2022-06-20] MEDS ORDERED: TETANUS & DIPHTHERIA TOX,ADULT 0.5 ML VIAL ONE (20:54)
[2022-06-20] MEDS ORDERED: MORPHINE 4 MG/ML SYR ONE (20:54)
[2022-06-20] MEDS ORDERED: BUPIVACAINE 0.5% PF 10 ML VIAL ONE (20:54)
--- NOTE | 2022-06-20 21:02 | RAD REPORT ---
EXAM DESCRIPTION: RAD - Hand Right 3 View - 06/20/2022 8:53 pm CLINICAL HISTORY: foreign body Pain and swelling COMPARISON: No comparisons FINDINGS: There is a large foreign body present in the soft tissues projecting along the base of the fourth and fifth metacarpal. A fracture is not apparent.
[2022-06-20] MEDS ORDERED: KETAMINE HCL 500 MG/5 ML VIAL ONE (21:09)
[2022-06-20] MEDS ORDERED: LORazepam 2 MG/ML VIAL ONE (21:44)
[2022-06-20 21:50] LABS: Hematocrit 45.1 % (36.0-45.0); Lymphocytes % 37.9 % (15.3-44.8); MCV 89.9 fL (80-100); MPV 7.4 fL (7.6-11.3); Protime INR 1.05; RBC Red Blood Cell Count 5.01 M/uL (3.86-4.86)
--- NOTE | 2022-06-20 22:16 | EDPHYS ---
Physician Documentation [facility] Name: Ondina Akbar Age: 46 yrs Sex: Female : 1975 Arrival Date: 06/20/2022 Time: 20:31 Bed 7 Private MD: ED Physician Tyrel Fong HPI: 06/20 21:00 This 46 yrs old Female presents to ER via EMS with complaints of Right Hand Injury. cp 21:00 The patient or guardian reports injury, a puncture wound, foreign body. The complaints cp affect the right hand. Onset: The symptoms/episode began/occurred just prior to arrival. 21:00 Associated signs and symptoms: The patient has no apparent associated signs or symptoms.cp 21:00 Patient reports injury occurred when she dropped her pointed crafting tool and in cp attempt to retrieve it, injured her right hand. Historical: - Allergies: 20:36 PENICILLINS; kd3 - Home Meds: 20:36 ANTI SEIZURE MED [Active]; kd3 - Immunization history:: Adult Immunizations up to date. - Social history:: Smoking status: unknown. ROS: 21:05 Constitutional: Negative for body aches, chills, fever, poor PO intake. cp 21:05 Eyes: Negative for injury, pain, redness, and discharge. cp 21:05 ENT: Negative for drainage from ear(s), ear pain, sore throat, difficulty swallowing, difficulty handling secretions. 21:05 Cardiovascular: Negative for chest pain. 21:05 Respiratory: Negative for cough, shortness of breath, wheezing. 21:05 Abdomen/GI: Negative for abdominal pain, vomiting, diarrhea, constipation. 21:05 Skin: Positive for puncture, of the hanson side of right hand. 21:05 Neuro: Negative for altered mental status. 21:05 All other systems are negative. Exam: 21:10 Constitutional: The patient appears in no acute distress, alert, awake, non-toxic, well cp developed, well nourished, in obvious pain, uncomfortable. 21:10 Head/Face: Normocephalic, atraumatic. cp 21:10 Chest/axilla: Inspection: normal. 21:10 Cardiovascular: Rate: normal, Rhythm: regular, Pulses: Pulses are 2+ in right radial artery. 21:10 Respiratory: the patient does not display signs of respiratory distress, Respirations: normal, no use of accessory muscles, no retractions, labored breathing, is not present, Breath sounds: are clear throughout, no decreased breath sounds, no stridor, no wheezing. 21:10 Abdomen/GI: Inspection: abdomen appears normal, Palpation: abdomen is soft and non-tender, in all quadrants. 21:10 Musculoskeletal/extremity: Extremities: grossly normal except: noted in the hanson side right hand: pain, puncture, tenderness, mild swelling proximal hypothenar eminence, ROM: full active range of motion, in the right hand, Perfusion: the extremity is normally perfused throughout, the right hand Sensation intact. Tendon exam: specific tendon testing normal through active and passive range of motion 21:30 ECG was reviewed by the Attending Physician. cp Vital Signs: 21:03 BP 148 / 96; Pulse 95; Resp 21; Temp 98.2(O); Pulse Ox 100% ; kd3 21:13 Weight 72.57 kg; kd3 21:30 BP 159 / 102; Pulse 94; Resp 17; Pulse Ox 100% on 2 lpm NC; kd3 21:35 BP 136 / 112; Pulse 132; Resp 23; Pulse Ox 100% on 2 lpm NC; kd3 21:47 BP 183 / 94; Pulse 123; Resp 21; Pulse Ox 100% on Non-rebreather mask; kd3 22:06 BP 154 / 96; Pulse 119; Resp 20; Pulse Ox 100% on 2 lpm NC; kd3 22:40 BP 152 / 99; Pulse 102; Resp 16; Pulse Ox 95% on R/A; kd3 Procedures: 21:48 Moderate sedation: Pre-procedure assessment: the patient has been NPO 2 hour(s) prior ms3 to arrival, ASA physical classification: II - mild/mod systemic disease that does not interfere with daily routines, Airway assessment: able to hyperextend neck, able to maintain airway, can open mouth without difficulty, Mallampati classification of tongue size: II - faucial pillars and soft palate can be visualized, but uvula is masked by the base of the tongue, Monitoring during procedure: cardiac surgeon, continuous pulse oximetry, nurse at bedside at all times, Medications employed: Ativan, 0.5 mg(s), Ketamine, 110 mg(s), Post-procedure assessment: the patient is not sedated, Respiratory status: even and unlabored, a reversal agent was not used. 21:50 Foreign Body Removal: pointed metal tip tool, from the right right hand, by manually. cp Dressinx4s were used to dress the wound, coban, The patient tolerated the removal well. MDM: 21:15 Patient medically screened. ms3 22:15 Data reviewed: vital signs, nurses notes, lab test result(s), radiologic studies, plain cp films, I have discussed the patient's presentation/case with the attending Emergency Department Physician;. 22:15 Differential diagnosis: open fracture, tendon injury, simple puncture wound. Test cp interpretation: by ED physician or midlevel provider: plain radiologic studies. Counseling: I had a detailed discussion with the patient and/or guardian regarding: the historical points, exam findings, and any diagnostic results supporting the discharge/admit diagnosis, lab results, radiology results, the need for outpatient follow up, a hand specialist, to return to the emergency department if symptoms worsen or persist or if there are any questions or concerns that arise at home. Response to treatment: the patient's symptoms have markedly improved after treatment, Pain improved, foreign body removed, wound cleaned and irrigated and dressed. Will discharge to home for continued monitoring. 06/20 20:34 Order name: CBC with Diff; Complete Time: 22:12 cp 06/20 20:34 Order name: BMP; Complete Time: 22:12 cp 06/20 20:34 Order name: XRAY Hand RIGHT 3 View; Complete Time: 21:02 cp 06/20 20:34 Order name: PT-INR; Complete Time: 22:12 cp 06/20 20:34 Order name: IV; Complete Time: 22:03 cp 06/20 20:39 Order name: Dressing - Wound; Complete Time: 22:13 cp 06/20 20:39 Order name: Gloves, Sterile; Complete Time: 22:13 cp 06/20 20:39 Order name: Setup Suture Tray; Complete Time: 22:13 cp 06/20 21:09 Order name: EKG; Complete Time: 21:09 cp 06/20 21:09 Order name: EKG - Nurse/Tech; Complete Time: 21:27 cp EC:30 Rate is 91 beats/min. Rhythm is regular. TN interval is normal. QRS interval is normal. cp QT interval is normal. T waves are Inverted in lead V3. Interpreted by me. Reviewed by me. Administered Medications: 21:05 Drug: morphine 4 mg Route: IVP; Infused Over: 4 mins; Site: left forearm; kd3 22:23 Follow up: Response: No adverse reaction; Pain is decreased kd3 21:06 Drug: Zofran (Ondansetron) 4 mg Route: IVP; Site: right forearm; kd3 22:24 Follow up: Response: No adverse reaction kd3 21:06 Drug: NS 0.9% 1000 ml Route: IV; Rate: 1 bolus; Site: left forearm; kd3 22:24 Follow up: Response: No adverse reaction kd3 21:34 Drug: Ketalar (ketamine) 1 mg/kg Route: IVP; Site: left forearm; kd3 22:13 Follow up: Response: No adverse reaction kd3 21:34 Drug: Ketalar (ketamine) 1 mg/kg Route: IVP; Site: left forearm; kd3 22:13 Follow up: Response: No adverse reaction kd3 22:03 Drug: Ancef (cefazolin) 1 grams Route: IVPB; Site: left forearm; kd3 22:03 Not Given (Physician Discretion): Lidocaine (1 %) 10 ml 5 ml Infiltration once; to kd3 bedside 22:04 Not Given (Physician Discretion): Marcaine (bupivacaine) (0.5 %) 10 ml 10 ml kd3 Infiltration once 22:22 Drug: Tetanus-Diphtheria Toxoid Adult 0.5 ml {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 Exp: kd3 11/24/2023. Lot #: [id number]. } Route: IM; Site: right deltoid; 22:24 Follow up: Response: No adverse reaction kd3 22:29 Drug: Clindamycin 600 mg Route: IVPB; Infused Over: 30 mins; Site: left forearm; kd3 Disposition: 06/21 02:38 Co-signature as Attending Physician, Tyrel MACHADO was immediately available onsite ms3 in the emergency department for consultation in the care of the patient. Disposition Summary: 06/20/22 22:15 Discharge Ordered Location: Home cp Problem: new cp Symptoms: have improved cp Condition: Stable cp Diagnosis - Puncture wound with foreign body of right hand, initial encounter cp Followup: cp - With: Dandre Arceo MD - When: 2 - 3 days - Reason: Wound Recheck Discharge Instructions: - Discharge Summary Sheet cp - Stab Wound cp Forms: - Medication Reconciliation Form cp - Thank You Letter cp - Antibiotic Education cp - Prescription Opioid Use cp Prescriptions: - Clindamycin HCl 300 mg Oral Capsule - take 1 capsule by ORAL route every 6 hours for 10 days; 40 capsule; Refills: 0, cp Product Selection Permitted - Ibuprofen 800 mg Oral Tablet - take 1 tablet by ORAL route every 8 hours As needed take with food; 30 tablet; cp Refills: 0, Product Selection Permitted Signatures: Dispatcher [employer] EDMS Christopher Emanuel PA PA cp Sims, Marcus, DO ms3 Radha Rossi RN RN [id number] Jemma Modi PAGeC PA-C sb4 Corrections: (The following items were deleted from the chart) 06/20 21:50 21:48 Moderate sedation: Pre-procedure assessment: the patient has been NPO 2 hour(s) ms3 prior to arrival, ASA physical classification: II - mild/mod systemic disease that does not interfere with daily routines, Airway assessment: able to hyperextend neck, able to maintain airway, can open mouth without difficulty, Mallampati classification of tongue size: II - faucial pillars and soft palate can be visualized, but uvula is masked by the base of the tongue, Monitoring during procedure: cardiac surgeon, continuous pulse oximetry, nurse at bedside at all times, Medications employed: Ketamine, ms3
--- NOTE | 2022-06-20 22:16 | ER ---
Nurse's Notes [facility] Name: Ondina Akbar Age: 46 yrs Sex: Female : 1975 Arrival Date: 06/20/2022 Time: 20:31 Bed 7 Private MD: Diagnosis: Puncture wound with foreign body of right hand, initial encounter Presentation: 06/20 20:34 Chief complaint: EMS states: PT WAS USING HER CRAFTING TOOLS WHEN SHE DROPPED ONE OF kd3 THE SHARP TOOLS. IT LANDED, POINT UP, ON HER THIGH AND SHE SLAMMED HER HAND DOWN ON THE POINT WITH HER RIGHT HAND, PUNCTURING THROUGH THE HAND. Coronavirus screen: Vaccine status: Patient reports receiving the 2nd dose of the covid vaccine. Ebola Screen: No symptoms or risks identified at this time. Initial Sepsis Screen: Does the patient meet any 2 criteria? No. Patient's initial sepsis screen is negative. Does the patient have a suspected source of infection? No. Patient's initial sepsis screen is negative. Risk Assessment: Do you want to hurt yourself or someone else? Patient reports no desire to harm self or others. Onset of symptoms was June 20, 2022. 20:34 Method Of Arrival: EMS: [facility] kd3 20:34 Acuity: TANYA 2 kd3 Triage Assessment: 20:36 General: Appears uncomfortable, Behavior is cooperative, anxious, crying. Pain: kd3 Complains of pain in right hand. Historical: - Allergies: 20:36 PENICILLINS; kd3 - Home Meds: 20:36 ANTI SEIZURE MED [Active]; kd3 - Immunization history:: Adult Immunizations up to date. - Social history:: Smoking status: unknown. Screenin:04 Abuse screen: Denies threats or abuse. Denies injuries from another. Nutritional kd3 screening: No deficits noted. Tuberculosis screening: Fall Risk None identified. Assessment: 21:27 General: pt to go under conscious sedation. pt consent signed. EKG done. supplemental kd3 oxygen applied. VS recorded. PT on monitor. . 22:04 Neuro: Level of Consciousness is awake, alert, obeys commands, Oriented to person, kd3 place, time, situation. Cardiovascular: Patient's skin is warm and dry. Respiratory: Airway is patent Trachea midline Respiratory effort is even, unlabored, Respiratory pattern is regular, symmetrical. Vital Signs: 21:03 BP 148 / 96; Pulse 95; Resp 21; Temp 98.2(O); Pulse Ox 100% ; kd3 21:13 Weight 72.57 kg; kd3 21:30 BP 159 / 102; Pulse 94; Resp 17; Pulse Ox 100% on 2 lpm NC; kd3 21:35 BP 136 / 112; Pulse 132; Resp 23; Pulse Ox 100% on 2 lpm NC; kd3 21:47 BP 183 / 94; Pulse 123; Resp 21; Pulse Ox 100% on Non-rebreather mask; kd3 22:06 BP 154 / 96; Pulse 119; Resp 20; Pulse Ox 100% on 2 lpm NC; kd3 22:40 BP 152 / 99; Pulse 102; Resp 16; Pulse Ox 95% on R/A; kd3 ED Course: 20:31 Patient arrived in ED. sb4 20:31 Christopher Emanuel PA is PHCP. sb4 20:32 Tyrel Fong DO is Attending Physician. cp 20:34 Radha Rossi, UMA is Primary Nurse. kd3 20:36 Triage completed. kd3 20:36 Arm band placed on right wrist. kd3 20:55 XRAY Hand RIGHT 3 View In Process Unspecified. EDMS 21:27 Patient has correct armband on for positive identification. kd3 22:15 Dandre Arceo MD is Referral Physician. cp Administered Medications: 21:05 Drug: morphine 4 mg Route: IVP; Infused Over: 4 mins; Site: left forearm; kd3 22:23 Follow up: Response: No adverse reaction; Pain is decreased kd3 21:06 Drug: Zofran (Ondansetron) 4 mg Route: IVP; Site: right forearm; kd3 22:24 Follow up: Response: No adverse reaction kd3 21:06 Drug: NS 0.9% 1000 ml Route: IV; Rate: 1 bolus; Site: left forearm; kd3 22:24 Follow up: Response: No adverse reaction kd3 21:34 Drug: Ketalar (ketamine) 1 mg/kg Route: IVP; Site: left forearm; kd3 22:13 Follow up: Response: No adverse reaction kd3 21:34 Drug: Ketalar (ketamine) 1 mg/kg Route: IVP; Site: left forearm; kd3 22:13 Follow up: Response: No adverse reaction kd3 22:03 Drug: Ancef (cefazolin) 1 grams Route: IVPB; Site: left forearm; kd3 22:03 Not Given (Physician Discretion): Lidocaine (1 %) 10 ml 5 ml Infiltration once; to kd3 bedside 22:04 Not Given (Physician Discretion): Marcaine (bupivacaine) (0.5 %) 10 ml 10 ml kd3 Infiltration once 22:22 Drug: Tetanus-Diphtheria Toxoid Adult 0.5 ml {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 Exp: kd3 11/24/2023. Lot #: [id number]. } Route: IM; Site: right deltoid; 22:24 Follow up: Response: No adverse reaction kd3 22:29 Drug: Clindamycin 600 mg Route: IVPB; Infused Over: 30 mins; Site: left forearm; kd3 Outcome: 22:15 Discharge ordered by MD. thakur 23:05 Patient left the ED. tw5 Signatures: Dispatcher [employer] EDMS Christopher Emanuel PA PA cp Wood, Tiffany tw5 Radha Rossi RN RN kd3 Jemma Modi PA-C PAKaty sb4 Corrections: (The following items were deleted from the chart) 20:40 20:34 Chief complaint: EMS states: PT WAS USING HER CRAFTING TOOLS WHEN SHE DROPPED ONE kd3 OF THE SHARP TOOLS. IT LANDED, POINT UP, ON HER THIGH AND SHE SLAMMED HER HAND DOWN ON THE POINT WITH HER RIGHT HAND, PUNCTURING THROUGH THE HAND. kd3
[2022-06-20] MEDS ORDERED: CLINDAMYCIN 600MG/D5W 600 MG/50 ML BAG IV ONE (22:28)
[2022-06-20 23:22] VITALS: TEMP 98.2
[2022-06-20 23:53] VITALS: BP 132/80; O2SAT 99
--- NOTE | 2022-06-21 07:49 | EKG ---
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
== END 2022-06-20 23:05 | disposition home or self-care (01) ==
LOC: ER 20:29
DX: S61.441A Puncture wound with foreign body of right hand, initial encounter (principal); Z23 Encounter for immunization; Z88.0 Allergy status to penicillin
CPT/HCPCS: 93005; 85025; 80048; 36415; 85610; 73130; 90471; 90714; 99284; J7030; J2405 ×2; J0690; J2001